=== PATIENT | female | born 1940 | race Caucasian/White ===

== ENCOUNTER → 2022-04-23 | Outpatient (CLI) | payer MEDICARE ==
[~2022-04-23] MED LIST: ASPI-1197 PO; ATOR10TA69 PO; BIOT25008 PO; CYCL30DR OU; GABA-529 PO; GLUC100019 PO; IBUP-2071 PO; LINA145C PO; METO-408 PO; MIDO2.5T PO; OMEP40CA21 PO; POLY17PO4 PO
== END | disposition home or self-care (01) ==
LOC: RAH 10:00
DX: J44.9 Chronic obstructive pulmonary disease, unspecified (principal); R91.1 Solitary pulmonary nodule
CPT/HCPCS: 71250

== ENCOUNTER → 2022-08-07 | Outpatient (CLI) | payer MEDICARE | END | disposition home or self-care (01) | LOC: RAH 11:14 | PROVIDERS: ATTEND Family Medicine | DX: J20.9 Acute bronchitis, unspecified (principal); M47.815 Spondylosis without myelopathy or radiculopathy, thoracolumbar region; Z95.0 Presence of cardiac pacemaker | CPT/HCPCS: 71046 ==